=== PATIENT | male | born 1995 | race Caucasian/White ===

== ENCOUNTER 2017-08-03 20:04 | Emergency (ER) | payer BC ==
[~2017-08-03] VITALS: Ht 180.3 cm; Wt 76.2 kg
[2017-08-03] MEDS ORDERED: ZIPRASIDONE 20 MG INJ IM ONE (20:37)
[2017-08-03 21:05] VITALS: BP 133/87
== END 2017-08-03 21:45 | disposition home or self-care (01) ==
LOC: ED 21:18
DX: F10.120 Alcohol abuse with intoxication, uncomplicated (principal); R41.0 Disorientation, unspecified; F84.5 Asperger's syndrome; R45.851 Suicidal ideations; F32.9 Major depressive disorder, single episode, unspecified
CPT/HCPCS: 99284

== ENCOUNTER 2017-08-25 14:10 | Emergency (ER) | payer BC ==
[~2017-08-25] VITALS: Ht 162.6 cm; Wt 55.5 kg
[2017-08-25 14:15] VITALS: BP 122/82
[2017-08-25] MEDS ORDERED: LORazepam 1MG TABLET PO ONE (14:30)
[2017-08-25] MEDS ORDERED: FLUO20CA19 PO (14:43)
[2017-08-25] MEDS ORDERED: Strattera PO (14:43)
[2017-08-25] MEDS ORDERED: QUET100T4 PO (14:43)
[2017-08-25] MEDS ORDERED: LORazepam 0.5MG TABLET ONE (14:50)
== END 2017-08-25 15:58 | disposition home or self-care (01) ==
LOC: ED 14:52
DX: R45.851 Suicidal ideations (principal); F33.40 Major depressive disorder, recurrent, in remission, unspecified
CPT/HCPCS: 99284